=== PATIENT | female | born 1980 | race Two or more races ===

== ENCOUNTER 2018-04-23 13:49 | Emergency (ER) | payer OTHER ==
[~2018-04-23] VITALS: Ht 162.6 cm; Wt 108.2 kg
[2018-04-23] MEDS ORDERED: ONDANSETRON ODT 4 MG PO ONE (14:30)
[2018-04-23] MEDS ORDERED: MORPHINE SULFATE 4 MG/ML, 1ML IVPush PRN (14:30)
[2018-04-23] MEDS ORDERED: SODIUM CHLORIDE FLUSH 10ML SYR IVF ONE (14:30)
[2018-04-23 14:36] LABS: BASOPHILS # (AUTO) 0.05 x10^3/uL (0-0.1); BASOPHILS % (AUTO) 1 % (0-1); EOSINOPHILS # (AUTO) 0.03 x10^3/uL (0-0.4); EOSINOPHILS % (AUTO) 0 % (1-7); LYMPHOCYTES # (AUTO) 1.87 x10^3/uL (1-3.4); LYMPHOCYTES % (AUTO) 17 % (22-44); MD NO; MEAN CORPUSCULAR HEMOGLOBIN 31.2 pg (27.0-34.8); MEAN CORPUSCULAR HGB CONC 34.3 g/dL (32.4-35.8); MEAN CORPUSCULAR VOLUME 90.7 fL (80-100); MEAN PLATELET VOLUME 7.7 fL (7.4-10.4); MONOCYTES # (AUTO) 0.55 x10^3/uL (0.2-0.8); MONOCYTES % (AUTO) 5 % (2-9); NEUTROPHILS % (AUTO) 78 % (42-75); PLATELET COUNT 399 x10^3/uL (130-400); RED BLOOD COUNT 4.81 x10^6/uL (3.82-5.3); RED CELL DISTRIBUTION WIDTH 12.4 % (9.6-15.2)
[2018-04-23] MEDS ORDERED: ONDANSETRON ODT 4 MG ONE (14:40)
[2018-04-23] MEDS ORDERED: MORPHINE SULFATE 4 MG/ML, 1ML ONE (14:40)
[2018-04-23 14:47] LABS: ALBUMIN 3.8 g/dL (3.4-5.0); ANION GAP 11 mmol/L (5-15); CALCIUM 8.9 mg/dL (8.5-10.1); CHLORIDE 107 mmol/L (98-107); CREATININE 0.76 mg/dL (0.55-1.02)
[2018-04-23 16:02] LABS: MICROSCOPIC AUTO
[2018-04-23 16:09] LABS: CULTURE INDICATED? YES
[2018-04-23 16:28] VITALS: BP 128/74
== END 2018-04-23 16:38 | disposition home or self-care (01) ==
LOC: ED 16:25
DX: K57.33 Diverticulitis of large intestine without perforation or abscess with bleeding (principal)
CPT/HCPCS: 36415; 74177; 80048; 81001; 82040; 84703; 85025; 87077; 87086; 87186; 96374; 99285; Q0162

== ENCOUNTER 2018-12-22 10:04 | Emergency (ER) | payer MEDICAID ==
[~2018-12-22] VITALS: Ht 162.6 cm; Wt 109.9 kg
[2018-12-22 10:06] VITALS: BP 174/90
--- NOTE | 2018-12-22 10:31 | NUR ---
CONTACT WITH PT, 38 YR OLD FEMALE HERE WITH C/O FALL ON THURSDAY, WENT TO GET UP AND HIT RIGHT FOREHEAD INTO WALL. NO LOC, NO N/V. NOW WITH CONT FLOATERS IN RIGHT EYE AND PAIN IN RIGHT HEAD. TODAY "ITS A WEIRD PRESSURE"
--- NOTE | 2018-12-22 10:51 | NUR ---
PT TO [facility]IA [facility]
--- NOTE | 2018-12-22 11:26 | NUR ---
DR FERNANDEZ AT BEDSIDE TO RE EVAL PT
--- NOTE | 2018-12-22 11:48 | NUR ---
NO ACUTE DISTRESS NOTED. NO IV TO DC. REVIEWED DC INSTRUCTIONS WITH PT, UNDERSTANDING VERBALIZED. PT LEFT AMB, GAIT STEADY.
== END 2018-12-22 11:50 | disposition home or self-care (01) ==
LOC: ED 11:27
DX: S06.0X0A Concussion without loss of consciousness, initial encounter (principal); W01.0XXA Fall on same level from slipping, tripping and stumbling without subsequent striking against object, initial encounter; Y93.89 Activity, other specified; Y92.89 Other specified places as the place of occurrence of the external cause; Y99.8 Other external cause status
CPT/HCPCS: 70450; 82962; 99284

== ENCOUNTER 2019-11-18 17:38 | Emergency (ER) | payer MEDICAID, OTHER ==
[~2019-11-18] VITALS: Ht 162.6 cm; Wt 108.7 kg
[2019-11-18 17:41] VITALS: BP 160/76
--- NOTE | 2019-11-18 18:10 | NUR ---
PT HAS C/O N/V, ABD PAIN THAT STARTED THIS MORNING AT 0530 PT SINCE THEN HAS HAD BRIGHT RED RECTAL BLOODY STOOLS. With providers rectal exam-hemmorhoids noted- to be discharged after review of home care/medications
== END 2019-11-18 18:45 | disposition home or self-care (01) ==
LOC: ED 18:42
DX: K64.8 Other hemorrhoids (principal)
CPT/HCPCS: 99283